=== PATIENT | male | born 1970 | race Caucasian/White ===

== ENCOUNTER 2016-09-05 14:33 | Emergency (ER) | payer MEDICAID ==
[2016-09-05 14:42] VITALS: RESP 16
[2016-09-05] MEDS ORDERED: ACETAMINOPHEN 325 MG TAB PO ONE (15:26)
--- NOTE | 2016-09-05 15:33 | EDPHY ---
H & P Stated Complaint: fall hit head +LOC Time Seen by Provider: 09/05/16 14:52 HPI/ROS: CHIEF COMPLAINT: head injury HISTORY OF PRESENT ILLNESS: 45-year-old male presents to the emergency department with a laceration to his forehead. Patient jumped into a window well , fell through the sump pump trap door striking his forehead on the brick wall. Patient reports a positive loss of consciousness. He remembers falling and striking his head then waking up. He reports a friend was nearby. Patient complains of neck pain. He denies numbness or tingling in his extremities. He reports mild nausea, no vomiting, no blurred vision, no amnesia prior to the event. Tetanus is up-to-date. REVIEW OF SYSTEMS: A comprehensive 10 point review of systems is otherwise negative aside from elements mentioned in the history of present illness. Source: Patient Exam Limitations: No limitations - Personal History Current Tetanus/Diphtheria Vaccine: Yes Current Tetanus Diphtheria and Acellular Pertussis (TDAP): Yes Tetanus Vaccine Date: 2012 - Medical/Surgical History Hx Asthma: No Hx Chronic Respiratory Disease: No Hx Diabetes: No Hx Cardiac Disease: No Hx Renal Disease: No Hx Cirrhosis: No Hx Alcoholism: No Hx HIV/AIDS: No Hx Splenectomy or Spleen Trauma: No Other PMH: PMH: DDD OF SPINE, MENINGITIS, bulging disk. PSH: appy - Social History Smoking Status: Current some day smoker - Physical Exam Exam: General Appearance: Alert, no distress, talking appropriately, comfortable. Head: 4 cm horizontal laceration to forehead Eyes: Pupils equal, round, reactive to light, EOMI, no trauma, no injection. Ears: Clear bilaterally, no perforation, no hemotympanum Nose: Atraumatic, no rhinorrhea, no septal hematoma Neck: Midline C-spine tenderness to palpation Cardiovascular: Heart is regular rate and rhythm. Good capillary refill all extremities. Chest: Atraumatic, equal bilateral breath sounds. Chest is non-tender to palpation. Gastrointestinal: Soft, non-tender, non-distended. No rebound, guarding, or peritoneal signs. There is no evidence of external or internal trauma. Back:There is no thoracic or lumbar spine or paraspinal tenderness. Extremities: All extremities are non-tender to palpation without obvious deformity. There is full active range of motion of the joints. Neurological: The patient has normal DTRs and non-focal Cranial nerves, motor, sensory, and cerebellar exam Skin: 4 cm horizontal laceration to forehead Constitutional: Initial Vital Signs Temperature (C) 36.9 C 09/05/16 14:40 Heart Rate 70 09/05/16 14:40 Respiratory Rate 16 09/05/16 14:40 Blood Pressure 120/94 H 09/05/16 14:40 O2 Sat (%) 94 09/05/16 14:40 O2 Delivery Mode Room Air Allergies/Adverse Reactions: No Known Allergies Allergy (Unverified 01/19/12 08:24) Home Medications: Medication Instructions Recorded Meloxicam 10/08/15 oxyCODONE/APAP 5/325 [Percocet 1 - 2 tab PO Q6H PRN #20 tab 10/08/15 5/325 (*)] traZODone 10/08/15 Medical Decision Making - Diagnostics Imaging Results: Imaging Impressions Cervical Spine CT 09/05/16 15:26 Impression: 1. No acute posttraumatic abnormality identified. If there is persistent pain or neurologic deficit, consider MRI and/or flexion and extension views if clinically indicated. 2. Multilevel degenerative change, most severe at C5-C6, with moderate to severe spinal canal narrowing and neural foraminal stenosis. Findings discussed with Gayla Loyd NP, 09/05/2016, at [address] 09/05/16 15:32 Impression: No acute intracranial findings. Findings discussed with Gayla Loyd NP 09/05/2016 at 16:01. Imaging: Discussed imaging studies w/ automotive hardware engineer Radiologist Procedures: Procedure: Laceration repair. Verbal consent was obtained from the patient. The 4 cm laceration on the forehead was anesthetized using 1% lidocaine with epinephrine. The wound was carefully irrigated by the emergency department weatherization technician. Next, the wound was prepped and draped in sterile fashion and explored to its base with a gloved finger. There were no deep structures involved. No vascular injury was identified. No foreign bodies were identified. The wound was repaired with 6.0 Prolene, 9 simple interrupted sutures. The wound repair was complex. Multiple wound margins required revising. Significant debridement was required. The procedure was performed by myself. Tetanus and antibiotic status were addressed. ED Course/Re-evaluation: 45-year-old male presents emergency department with a laceration to his forehead after striking his head on a brick house. Positive loss of consciousness, positive neck pain. CT C-spine and brain has been ordered. Laceration anesthetized, cleaned and sutured. Patient is discharged home in good condition. He is alert and oriented, ambulates without difficulty, and is given strict return precautions, he is comfortable with this plan. Differential Diagnosis: The differential diagnosis for the patient's head injury included but was not limited to concussion, skull fracture, intra-parenchymal contusion, subarachnoid , subdural and epidural hematoma. - Data Points Medications Given: Discontinued Medications Acetaminophen (Tylenol) 650 mg PO EDNOW ONE Stop: 09/05/16 15:27 Last Admin: 09/05/16 15:31 Dose: Not Given Departure - Departure Disposition: Home, Routine, Self-Care Clinical Impression: Forehead laceration Qualifiers: Encounter type: initial encounter Qualified Code(s): S01.81XA - Laceration without foreign body of other part of head, initial encounter Minor head injury with loss of consciousness Qualifiers: Encounter type: initial encounter Qualified Code(s): S06.9X9A - Unspecified intracranial injury with loss of consciousness of unspecified duration, initial encounter Cervical strain, acute Qualifiers: Encounter type: initial encounter Qualified Code(s): S16.1XXA - Strain of muscle, fascia and tendon at neck level, initial encounter Condition: Good Instructions: Cervical Strain (ED), Head Injury (ED), Facial Laceration (ED) Additional Instructions: Return to the emergency department in 5 days for suture removal. Ice to your neck for the 1st 48 hours then ice or heat whichever feels better. Take 600 mg of ibuprofen every 8 hours with food for 3-5 days for pain. Return to the emergency department for any forceful vomiting, confusion, blurred vision, any new symptoms or concerns. Referrals: [facility],. [Clinic] -
[2016-09-05] MEDS ORDERED: IBUPROFEN 600 MG TAB PO ONE (16:33)
[2016-09-05 16:39] VITALS: BP 144/79; PULSE 67; TEMP 97.7; O2SAT 96
== END 2016-09-05 16:39 | disposition home or self-care (01) ==
DX: S01.81XA Laceration without foreign body of other part of head, initial encounter (principal); S16.1XXA Strain of muscle, fascia and tendon at neck level, initial encounter; F17.200 Nicotine dependence, unspecified, uncomplicated; W01.198A Fall on same level from slipping, tripping and stumbling with subsequent striking against other object, initial encounter; Y99.8 Other external cause status; Y93.39 Activity, other involving climbing, rappelling and jumping off